=== PATIENT | female | born 1940 | race Caucasian/White ===

== ENCOUNTER 2017-12-08 08:30 | Inpatient (IN) | payer MEDICARE, OTHER ==
[~2017-12-08] VITALS: Ht 165.1 cm; Wt 75.0 kg
[~2017-12-08 08:30] MED LIST: ACET325T55 PO; APIX5TAB3 PO; CHOL2000 PO; DONE10TA6 PO; HYDR-569 PO; IBUP-1984 PO; LEVE500T PO; LORA0.5T PO; LOSA50TA37 PO; MEMA28CA PO; MULT-1085 PO; SERT100T10 PO
[2017-12-08 09:08] LABS: BASOPHILS % (AUTO) 0.1 % (0-1); EOSINOPHILS # (AUTO) 0.2 X10'3 (0-0.9); EOSINOPHILS % (AUTO) 1.2 % (0-6); HEMATOCRIT 43.9 % (35.0-45.0); HEMOGLOBIN 14.7 g/dl (12.0-16.0); LYMPHOCYTES % (AUTO) 6.4 % (21-51); MEAN CORPUSCULAR HGB CONC 33.6 % (33.0-36.5); MEAN CORPUSCULAR VOLUME 86.4 FL (78-98); MEAN PLATELET VOLUME 7.7 FL (7.4-10.4); MONOCYTES % (AUTO) 6.3 % (2-12); NEUTROPHILS # (AUTO) 12.9 X10'3 (1.8-7.7); PLATELET COUNT 249 X10'3 (140-440); RED BLOOD COUNT 5.07 X10'6 (4.20-5.60); RED CELL DISTRIBUTION WIDTH 13.4 % (11.5-14.5)
[2017-12-08 09:18] LABS: PARTIAL THROMBOPLASTIN TIME 25 SECONDS (22-32)
[2017-12-08 09:29] LABS: ALANINE AMINOTRANSFERASE 32 U/L (12-78); ALBUMIN 4.1 G/DL (3.4-5.0); ALBUMIN/GLOBULIN RATIO 1.1 (1.1-1.5); ALKALINE PHOSPHATASE 80 IU/L (46-116); ASPARTATE AMINO TRANSFERASE 21 U/L (10-37); BILIRUBIN,TOTAL 0.7 MG/DL (0.1-1.0); BLOOD UREA NITROGEN 25 MG/DL (7-18); BUN/CREATININE RATIO 19.2 (6.6-38.0); CALCIUM 9.4 MG/DL (8.5-10.1); GLUCOSE 143 MG/DL (70-104); TROPONIN I < 0.04 NG/ML (0.0-0.05); eGFR 40 ML/MIN
[2017-12-08 09:31] LABS: ANION GAP 12 (8-16); CHLORIDE 102 MMOL/L (99-107); POTASSIUM 4.2 MMOL/L (3.5-5.1); SODIUM 136 MMOL/L (135-145)
[2017-12-08] MEDS ORDERED: CefTRIAXone 2gm/D5W 50ml 50 ML IV ONE (09:40)
[2017-12-08] MEDS ORDERED: CefTRIAXone/D5W-Rocephin 1gm 50 ML IV ONE (10:15)
[2017-12-08] MEDS ORDERED: potassium Cl 20 mEq SR tablet PO PRN ×2 (10:15)
[2017-12-08] MEDS ORDERED: acetaminophen 650mg rectal suppository RC PRN (10:15)
[2017-12-08] MEDS ORDERED: magnesium Cl slow-release 64mg tablet PO PRN (10:15)
[2017-12-08] MEDS ORDERED: potassium Cl 40MEQ/NS 500ml 500 ML IV PRN ×2 (10:15)
[2017-12-08] MEDS ORDERED: magnesium 1gm/100ml D5W IVPB 100 ML IV PRN (10:15)
[2017-12-08] MEDS ORDERED: magnesium 4gm in 100ml NS 100 ML IV PRN (10:15)
[2017-12-08] MEDS ORDERED: ondansetron/PF 4mg/2ml inj IV PRN (10:15)
[2017-12-08] MEDS: normal saline 1000ml 1,000 ML IV SCH ×2 (10:52→20:36)
[2017-12-08 11:01] LABS: CLARITY,URINE CLEAR (Clear); COLOR,URINE YELLOW (Yellow); GLUCOSE, URINE NEGATIVE (Neg); KETONES,URINE NEGATIVE (Neg); LEUKOCYTE ESTERASE ,URINE NEGATIVE (Neg); NITRITES, URINE NEGATIVE (Neg); OCCULT BLOOD,URINE MODERATE (Neg); PROTEIN,URINE NEGATIVE (Neg); UA COLLECTION TYPE STRAIGHT CATH; UROBILINOGEN,URINE 0.2 E.U/dL (0.2-1.0)
[2017-12-08 11:09] LABS: BACTERIA,URINE FEW /HPF (Neg); HYALINE CASTS 0-3 /LPF (NEGATIVE); MUCUS STRANDS MODERATE /LPF (Neg); SQUAMOUS EPITHELIAL CELL,UR FEW /LPF (FEW); WBC,URINE 0-4 /HPF (0-4)
[2017-12-08 13:44] VITALS: BP 147/80
[2017-12-08 18:00] VITALS: BP 168/77
[2017-12-08 22:00] VITALS: BP 160/81
[2017-12-09 06:00] VITALS: BP 161/72
[2017-12-09] MEDS: normal saline 1000ml 1,000 ML IV SCH ×2 (06:12→16:12)
[2017-12-09 06:43] LABS: BASOPHILS # (AUTO) 0.1 X10'3 (0-0.2); BASOPHILS % (AUTO) 0.8 % (0-1); EOSINOPHILS # (AUTO) 0.1 X10'3 (0-0.9); EOSINOPHILS % (AUTO) 1.1 % (0-6); HEMATOCRIT 37.9 % (35.0-45.0); HEMOGLOBIN 12.8 g/dl (12.0-16.0); LYMPHOCYTES # (AUTO) 1.4 X10'3 (1.1-4.8); LYMPHOCYTES % (AUTO) 13.9 % (21-51); MEAN CORPUSCULAR HEMOGLOBIN 28.9 PG (27.0-31.0); MEAN CORPUSCULAR HGB CONC 33.7 % (33.0-36.5); MEAN CORPUSCULAR VOLUME 85.6 FL (78-98); MEAN PLATELET VOLUME 8.8 FL (7.4-10.4); MONOCYTES # (AUTO) 0.9 X10'3 (0-0.9); MONOCYTES % (AUTO) 8.9 % (2-12); NEUTROPHILS # (AUTO) 7.4 X10'3 (1.8-7.7); NEUTROPHILS % (AUTO) 75.3 % (42-75); PLATELET COUNT 193 X10'3 (140-440); RED BLOOD COUNT 4.43 X10'6 (4.20-5.60); RED CELL DISTRIBUTION WIDTH 13.1 % (11.5-14.5); WHITE BLOOD COUNT 9.9 X10'3 (4.5-11.0)
[2017-12-09 06:55] LABS: ALBUMIN 3.4 G/DL (3.4-5.0); ANION GAP 11 (8-16); BLOOD UREA NITROGEN 22 MG/DL (7-18); BUN/CREATININE RATIO 20.2 (6.6-38.0); CALCIUM 8.4 MG/DL (8.5-10.1); CHLORIDE 105 MMOL/L (99-107); CREATININE 1.09 MG/DL (0.40-0.90); GLUCOSE 106 MG/DL (70-104); POTASSIUM 3.5 MMOL/L (3.5-5.1); SODIUM 139 MMOL/L (135-145); TOTAL CARBON DIOXIDE 22.6 MMOL/L (24-32); eGFR 49 ML/MIN
[2017-12-09] MEDS: K and/or MAG REPLACEMENT MC SCH (07:20)
[2017-12-09] MEDS ORDERED: HYDR-569 PO (13:55)
[2017-12-09] MEDS ORDERED: APIX5TAB3 PO (13:55)
[2017-12-09] MEDS: losartan 50mg tablet PO SCH (17:20)
[2017-12-09] MEDS: LORazepam 2 mg/ml vial IV PRN (17:20)
[2017-12-09 18:00] VITALS: BP 168/85
[2017-12-09] MEDS: levetiracetam 250mg tablet PO SCH (20:03)
[2017-12-09] MEDS: donepezil 5mg tablet PO SCH (20:04)
[2017-12-09] MEDS: memantine 5mg tablet PO SCH (20:04)
[2017-12-09 22:00] VITALS: BP 145/84
[2017-12-10] MEDS: normal saline 1000ml 1,000 ML IV SCH ×2 (03:05→13:55)
[2017-12-10 06:00] VITALS: BP 168/78
[2017-12-10 06:02] LABS: BASOPHILS % (AUTO) 0.4 % (0-1); EOSINOPHILS # (AUTO) 0.2 X10'3 (0-0.9); EOSINOPHILS % (AUTO) 1.8 % (0-6); HEMATOCRIT 38.4 % (35.0-45.0); HEMOGLOBIN 13.1 g/dl (12.0-16.0); LYMPHOCYTES % (AUTO) 11.1 % (21-51); MEAN CORPUSCULAR HGB CONC 34.1 % (33.0-36.5); MEAN CORPUSCULAR VOLUME 85.2 FL (78-98); MEAN PLATELET VOLUME 8.4 FL (7.4-10.4); MONOCYTES # (AUTO) 0.8 X10'3 (0-0.9); MONOCYTES % (AUTO) 8.6 % (2-12); NEUTROPHILS # (AUTO) 7.3 X10'3 (1.8-7.7); NEUTROPHILS % (AUTO) 78.1 % (42-75); PLATELET COUNT 182 X10'3 (140-440); RED BLOOD COUNT 4.51 X10'6 (4.20-5.60); RED CELL DISTRIBUTION WIDTH 12.8 % (11.5-14.5); WHITE BLOOD COUNT 9.4 X10'3 (4.5-11.0)
[2017-12-10 06:26] LABS: ALBUMIN 3.2 G/DL (3.4-5.0); ANION GAP 13 (8-16); BLOOD UREA NITROGEN 18 MG/DL (7-18); BUN/CREATININE RATIO 16.8 (6.6-38.0); CHLORIDE 104 MMOL/L (99-107); CREATININE 1.07 MG/DL (0.40-0.90); GLUCOSE 105 MG/DL (70-104); SODIUM 138 MMOL/L (135-145); TOTAL CARBON DIOXIDE 20.6 MMOL/L (24-32); eGFR 50 ML/MIN
[2017-12-10 06:28] LABS: POTASSIUM 3.8 MMOL/L (3.5-5.1)
[2017-12-10] MEDS: K and/or MAG REPLACEMENT MC SCH (08:00)
[2017-12-10] MEDS: losartan 50mg tablet PO SCH (08:10)
[2017-12-10] MEDS: levetiracetam 250mg tablet PO SCH ×2 (08:10→19:42)
[2017-12-10] MEDS: sertraline 50mg tablet PO SCH (08:10)
[2017-12-10] MEDS: LORazepam 2 mg/ml vial IV PRN (08:11)
[2017-12-10 10:00] VITALS: BP 159/79
[2017-12-10] MEDS: memantine 5mg tablet PO SCH ×2 (14:14→19:42)
[2017-12-10] MEDS: acetaminophen 325mg tablet PO PRN (17:19)
[2017-12-10] MEDS: LORazepam 0.5 MG tablet PO PRN (17:23)
[2017-12-10 18:00] VITALS: BP 173/96
[2017-12-10] MEDS: donepezil 5mg tablet PO SCH (19:42)
[2017-12-10 22:00] VITALS: BP 157/78
[2017-12-11 05:55] LABS: ALBUMIN 3.2 G/DL (3.4-5.0); ANION GAP 9 (8-16); BLOOD UREA NITROGEN 18 MG/DL (7-18); BUN/CREATININE RATIO 19.6 (6.6-38.0); CALCIUM 8.7 MG/DL (8.5-10.1); CHLORIDE 104 MMOL/L (99-107); CREATININE 0.92 MG/DL (0.40-0.90); GLUCOSE 115 MG/DL (70-104); MAGNESIUM 2.1 MG/DL (1.5-2.4); POTASSIUM 3.8 MMOL/L (3.5-5.1); SODIUM 137 MMOL/L (135-145); TOTAL CARBON DIOXIDE 23.6 MMOL/L (24-32); eGFR 59 ML/MIN
[2017-12-11 06:00] VITALS: BP 130/69
[2017-12-11] MEDS: K and/or MAG REPLACEMENT MC SCH (06:57)
[2017-12-11] MEDS ORDERED: cefTRIAXone 1g/NS 100ml IVPB 50 ML IV SCH (08:00)
[2017-12-11] MEDS: losartan 50mg tablet PO SCH (08:22)
[2017-12-11] MEDS: sertraline 50mg tablet PO SCH (08:22)
[2017-12-11] MEDS: memantine 5mg tablet PO SCH ×2 (08:22→19:28)
[2017-12-11] MEDS: levetiracetam 250mg tablet PO SCH ×2 (08:22→19:28)
[2017-12-11] MEDS ORDERED: calcitonin, salmon,Synth Nasal spray 200 units/actuation NS SCH (09:00)
[2017-12-11 09:08] LABS: BASOPHILS % (AUTO) 0.4 % (0-1); EOSINOPHILS # (AUTO) 0.2 X10'3 (0-0.9); EOSINOPHILS % (AUTO) 2.4 % (0-6); HEMATOCRIT 37.5 % (35.0-45.0); HEMOGLOBIN 12.6 g/dl (12.0-16.0); LYMPHOCYTES # (AUTO) 1.1 X10'3 (1.1-4.8); LYMPHOCYTES % (AUTO) 13.7 % (21-51); MEAN CORPUSCULAR HEMOGLOBIN 28.7 PG (27.0-31.0); MEAN CORPUSCULAR HGB CONC 33.5 % (33.0-36.5); MEAN CORPUSCULAR VOLUME 85.8 FL (78-98); MEAN PLATELET VOLUME 7.8 FL (7.4-10.4); MONOCYTES # (AUTO) 0.7 X10'3 (0-0.9); MONOCYTES % (AUTO) 8.2 % (2-12); NEUTROPHILS # (AUTO) 6.2 X10'3 (1.8-7.7); NEUTROPHILS % (AUTO) 75.3 % (42-75); PLATELET COUNT 205 X10'3 (140-440); RED BLOOD COUNT 4.37 X10'6 (4.20-5.60); RED CELL DISTRIBUTION WIDTH 12.8 % (11.5-14.5); WHITE BLOOD COUNT 8.2 X10'3 (4.5-11.0)
[2017-12-11 10:00] VITALS: BP 142/75
[2017-12-11] MEDS: LORazepam 0.5 MG tablet PO PRN ×2 (12:53→19:28)
[2017-12-11] MEDS: acetaminophen 325mg tablet PO PRN ×2 (12:58→22:05)
[2017-12-11 18:00] VITALS: BP 135/72
[2017-12-11] MEDS: donepezil 5mg tablet PO SCH (19:28)
[2017-12-11 22:00] VITALS: BP 135/68
[2017-12-12 06:00] VITALS: BP 144/78
[2017-12-12 06:26] LABS: ALBUMIN 3.3 G/DL (3.4-5.0); ANION GAP 11 (8-16); BLOOD UREA NITROGEN 18 MG/DL (7-18); BUN/CREATININE RATIO 17.1 (6.6-38.0); CHLORIDE 104 MMOL/L (99-107); CREATININE 1.05 MG/DL (0.40-0.90); GLUCOSE 107 MG/DL (70-104); POTASSIUM 3.8 MMOL/L (3.5-5.1); SODIUM 138 MMOL/L (135-145); TOTAL CARBON DIOXIDE 23.1 MMOL/L (24-32); eGFR 51 ML/MIN
[2017-12-12 06:40] LABS: BASOPHILS # (AUTO) 0.1 X10'3 (0-0.2); BASOPHILS % (AUTO) 0.6 % (0-1); EOSINOPHILS # (AUTO) 0.3 X10'3 (0-0.9); EOSINOPHILS % (AUTO) 2.8 % (0-6); HEMATOCRIT 39.4 % (35.0-45.0); HEMOGLOBIN 13.3 g/dl (12.0-16.0); LYMPHOCYTES # (AUTO) 1.1 X10'3 (1.1-4.8); LYMPHOCYTES % (AUTO) 9.8 % (21-51); MEAN CORPUSCULAR HGB CONC 33.6 % (33.0-36.5); MEAN CORPUSCULAR VOLUME 86.2 FL (78-98); MEAN PLATELET VOLUME 8.5 FL (7.4-10.4); MONOCYTES # (AUTO) 0.8 X10'3 (0-0.9); MONOCYTES % (AUTO) 6.6 % (2-12); NEUTROPHILS # (AUTO) 9.3 X10'3 (1.8-7.7); NEUTROPHILS % (AUTO) 80.2 % (42-75); PLATELET COUNT 215 X10'3 (140-440); RED BLOOD COUNT 4.58 X10'6 (4.20-5.60); RED CELL DISTRIBUTION WIDTH 12.9 % (11.5-14.5); WHITE BLOOD COUNT 11.6 X10'3 (4.5-11.0)
[2017-12-12] MEDS: LORazepam 0.5 MG tablet PO PRN (07:19)
[2017-12-12] MEDS: memantine 5mg tablet PO SCH (07:24)
[2017-12-12] MEDS: sertraline 50mg tablet PO SCH (07:24)
[2017-12-12] MEDS: losartan 50mg tablet PO SCH (07:24)
[2017-12-12] MEDS: levetiracetam 250mg tablet PO SCH (07:24)
[2017-12-12] MEDS: acetaminophen 325mg tablet PO PRN (07:25)
[2017-12-12] MEDS ORDERED: HYDROcodone/acetaminophen 5mg/325mg tablet PO PRN (07:40)
[2017-12-12] MEDS ORDERED: morphine 2 MG/ML inj. syringe IV PRN (07:40)
[2017-12-12] MEDS: K and/or MAG REPLACEMENT MC SCH (08:00)
[2017-12-12 10:00] VITALS: BP 142/81
== END 2017-12-12 14:50 | DRG 917 ==
LOC: ER 08:31 → ED HOLD 10:12 → ORTHO 4S 13:20
PROVIDERS: ADMIT Internal Medicine; ATTEND Family Medicine
DX: T40.2X1A Poisoning by other opioids, accidental (unintentional), initial encounter (principal); G92 Toxic encephalopathy; N17.9 Acute kidney failure, unspecified; M48.56XA Collapsed vertebra, not elsewhere classified, lumbar region, initial encounter for fracture; G40.909 Epilepsy, unspecified, not intractable, without status epilepticus; G30.9 Alzheimer's disease, unspecified; T48.1X1A Poisoning by skeletal muscle relaxants [neuromuscular blocking agents], accidental (unintentional), initial encounter; F02.80 Dementia in other diseases classified elsewhere, unspecified severity, without behavioral disturbance, psychotic disturbance, mood disturbance, and anxiety; M85.80 Other specified disorders of bone density and structure, unspecified site; I10 Essential (primary) hypertension; R25.1 Tremor, unspecified; F41.9 Anxiety disorder, unspecified; M54.5 Low back pain; Z66 Do not resuscitate; Z90.710 Acquired absence of both cervix and uterus; Z88.2 Allergy status to sulfonamides; Z88.8 Allergy status to other drugs, medicaments and biological substances; Z79.899 Other long term (current) drug therapy; Z79.01 Long term (current) use of anticoagulants; Z86.718 Personal history of other venous thrombosis and embolism; Y92.89 Other specified places as the place of occurrence of the external cause
CPT/HCPCS: 36415; 70450; 71045; 72148; 80048; 80053; 81001; 82306; 82948; 83605; 83735; 84145; 84484; 85025; 85610; 85730; 87040; 87070; 92616; 93005; 97116; 97162; 97530; 99285; A4353; A6213; J0696; J2060; J7030

== ENCOUNTER 2018-03-24 10:42 | Inpatient (IN) | payer MEDICARE, OTHER ==
[~2018-03-24] VITALS: Ht 167.6 cm; Wt 68.1 kg
[~2018-03-24 10:42] MED LIST changes: -DONE10TA6 PO; +DONE10TA7 PO; +HYDR-4383 PO; -HYDR-569 PO; +LOSA50TA21 PO; -LOSA50TA37 PO
[2018-03-24] MEDS ORDERED: normal saline 1000ML IV soln IV ONE (10:50)
[2018-03-24 11:14] LABS: CLARITY,URINE CLOUDY (Clear); COLOR,URINE AMBER (Yellow); GLUCOSE, URINE NEGATIVE (Neg); KETONES,URINE TRACE mg/dl (Neg); LEUKOCYTE ESTERASE ,URINE NEGATIVE (Neg); NITRITES, URINE NEGATIVE (Neg); OCCULT BLOOD,URINE TRACE-INTACT (Neg); PH,URINE 5.5 (4.8-8.0); PROTEIN,URINE 30 mg/dl (Neg); UROBILINOGEN,URINE 0.2 E.U/dL (0.2-1.0)
[2018-03-24 11:15] LABS: UA COLLECTION TYPE FOLEY CATH
[2018-03-24 11:24] LABS: BASOPHILS % (AUTO) 0.2 % (0-1); EOSINOPHILS # (AUTO) 0.3 X10'3 (0-0.9); EOSINOPHILS % (AUTO) 1.3 % (0-6); HEMATOCRIT 53.7 % (35.0-45.0); HEMOGLOBIN 17.1 g/dl (12.0-16.0); LYMPHOCYTES # (AUTO) 0.8 X10'3 (1.1-4.8); LYMPHOCYTES % (AUTO) 3.2 % (21-51); MEAN CORPUSCULAR HEMOGLOBIN 27.6 PG (27.0-31.0); MEAN CORPUSCULAR HGB CONC 31.9 % (33.0-36.5); MEAN CORPUSCULAR VOLUME 86.6 FL (78-98); MEAN PLATELET VOLUME 9.1 FL (7.4-10.4); MONOCYTES # (AUTO) 0.3 X10'3 (0-0.9); MONOCYTES % (AUTO) 1.4 % (2-12); NEUTROPHILS # (AUTO) 22.4 X10'3 (1.8-7.7); NEUTROPHILS % (AUTO) 93.9 % (42-75); PLATELET COUNT 273 X10'3 (140-440); RED CELL DISTRIBUTION WIDTH 13.9 % (11.5-14.5); WHITE BLOOD COUNT 23.9 X10'3 (4.5-11.0)
[2018-03-24 11:27] LABS: WBC,URINE 0-4 /HPF (0-4)
[2018-03-24 11:28] LABS: BACTERIA,URINE NONE SEEN /HPF (Neg); SQUAMOUS EPITHELIAL CELL,UR MANY /LPF (FEW)
[2018-03-24 11:37] LABS: ALANINE AMINOTRANSFERASE 513 U/L (12-78); ALBUMIN/GLOBULIN RATIO 1.1 (1.1-1.5); ALKALINE PHOSPHATASE 163 IU/L (46-116); ANION GAP 21 (8-16); ASPARTATE AMINO TRANSFERASE 187 U/L (10-37); BILIRUBIN,TOTAL 0.9 MG/DL (0.1-1.0); BLOOD UREA NITROGEN 34 MG/DL (7-18); BUN/CREATININE RATIO 15.5 (6.6-38.0); CALCIUM 9.5 MG/DL (8.5-10.1); CHLORIDE 103 MMOL/L (99-107); CREATININE 2.19 MG/DL (0.40-0.90); GLUCOSE 174 MG/DL (70-104); MAGNESIUM 1.9 MG/DL (1.5-2.4); POTASSIUM 3.5 MMOL/L (3.5-5.1); SODIUM 142 MMOL/L (135-145); TOTAL CARBON DIOXIDE 17.9 MMOL/L (24-32); TOTAL PROTEIN 7.6 G/DL (6.4-8.2); eGFR 22 ML/MIN
[2018-03-24] MEDS ORDERED: CefTRIAXone 2gm/D5W 50ml 50 ML IV ONE (11:40)
[2018-03-24] MEDS: oseltamivir phos 75mg capsule PO ONE ×2 (11:40→11:49)
[2018-03-24] MEDS ORDERED: azithromycin/NS 500mg/250ml 250 ML IV ONE (11:40)
[2018-03-24] MEDS ORDERED: ondansetron/PF 4mg/2ml inj IV ONE (12:15)
[2018-03-24] MEDS ORDERED: DULOXETINE (12:51)
[2018-03-24] MEDS ORDERED: mag hydrox/Alum hydrox/simeth 30ml oral suspension PO PRN (14:35)
[2018-03-24] MEDS ORDERED: metoclopramide 5 mg/ml inj IV PRN (14:35)
[2018-03-24] MEDS ORDERED: ondansetron/PF 4mg/2ml inj IV PRN (14:35)
[2018-03-24] MEDS ORDERED: potassium Cl 40MEQ/NS 500ml 500 ML IV PRN ×2 (14:35)
[2018-03-24] MEDS ORDERED: HYDROcodone/acetaminophen 10/325mg tab PO PRN (14:35)
[2018-03-24] MEDS ORDERED: acetaminophen 325mg tablet PO PRN ×2 (14:35)
[2018-03-24] MEDS ORDERED: potassium Cl 20 mEq SR tablet PO PRN ×2 (14:35)
[2018-03-24] MEDS ORDERED: magnesium Cl slow-release 64mg tablet PO PRN (14:35)
[2018-03-24] MEDS ORDERED: magnesium hydroxide 30ml (MOM) UD suspension PO PRN (14:35)
[2018-03-24] MEDS ORDERED: magnesium 4gm in 100ml NS 100 ML IV PRN (14:35)
[2018-03-24] MEDS: normal saline 1000ml 1,000 ML IV SCH (15:02)
[2018-03-24] MEDS ORDERED: DOCU-267 PO (15:11)
[2018-03-24] MEDS ORDERED: CALC-157 PO (15:16)
[2018-03-24] MEDS ORDERED: SENN-161 PO (15:18)
[2018-03-24] MEDS ORDERED: ONDA4TAB11 PO (15:19)
[2018-03-24 17:00] VITALS: BP 155/85
[2018-03-24 20:00] VITALS: BP 155/93
[2018-03-24] MEDS: levetiracetam 250mg tablet PO SCH (20:27)
[2018-03-24] MEDS: memantine 5mg tablet PO SCH (20:27)
[2018-03-24] MEDS: donepezil 5mg tablet PO SCH (20:27)
[2018-03-25 05:00] VITALS: BP 144/83
[2018-03-25] MEDS: normal saline 1000ml 1,000 ML IV SCH (05:23)
[2018-03-25] MEDS: HYDROcodone/acetaminophen 5mg/325mg tablet PO PRN ×2 (05:25→17:07)
[2018-03-25 06:12] LABS: BASOPHILS # (AUTO) 0.1 X10'3 (0-0.2); BASOPHILS % (AUTO) 0.2 % (0-1); EOSINOPHILS % (AUTO) 0 % (0-6); HEMATOCRIT 45.9 % (35.0-45.0); LYMPHOCYTES # (AUTO) 0.8 X10'3 (1.1-4.8); LYMPHOCYTES % (AUTO) 3.1 % (21-51); MEAN CORPUSCULAR HEMOGLOBIN 28.1 PG (27.0-31.0); MEAN CORPUSCULAR HGB CONC 32.7 % (33.0-36.5); MEAN CORPUSCULAR VOLUME 85.8 FL (78-98); MEAN PLATELET VOLUME 9.3 FL (7.4-10.4); MONOCYTES # (AUTO) 0.7 X10'3 (0-0.9); MONOCYTES % (AUTO) 2.9 % (2-12); NEUTROPHILS # (AUTO) 24.2 X10'3 (1.8-7.7); NEUTROPHILS % (AUTO) 93.8 % (42-75); PLATELET COUNT 209 X10'3 (140-440); RED BLOOD COUNT 5.35 X10'6 (4.20-5.60); RED CELL DISTRIBUTION WIDTH 14.3 % (11.5-14.5)
[2018-03-25 06:15] LABS: WHITE BLOOD COUNT 25.8 X10'3 (4.5-11.0)
[2018-03-25 06:37] LABS: ALANINE AMINOTRANSFERASE 213 U/L (12-78); ALBUMIN 2.7 G/DL (3.4-5.0); ALBUMIN/GLOBULIN RATIO 0.9 (1.1-1.5); ALKALINE PHOSPHATASE 97 IU/L (46-116); ANION GAP 14 (8-16); ASPARTATE AMINO TRANSFERASE 56 U/L (10-37); BILIRUBIN,TOTAL 0.5 MG/DL (0.1-1.0); BLOOD UREA NITROGEN 24 MG/DL (7-18); BUN/CREATININE RATIO 22.4 (6.6-38.0); CALCIUM 7.2 MG/DL (8.5-10.1); CHLORIDE 112 MMOL/L (99-107); CREATININE 1.07 MG/DL (0.40-0.90); GLUCOSE 143 MG/DL (70-104); MAGNESIUM 1.6 MG/DL (1.5-2.4); PHOSPHORUS 1.8 MG/DL (2.3-4.5); POTASSIUM 3.2 MMOL/L (3.5-5.1); SODIUM 146 MMOL/L (135-145); TOTAL CARBON DIOXIDE 19.7 MMOL/L (24-32); TOTAL PROTEIN 5.6 G/DL (6.4-8.2); eGFR 50 ML/MIN
[2018-03-25 06:46] LABS: PLATELET ESTIMATE NORMAL; TOTAL CELLS COUNTED 100
[2018-03-25] MEDS ORDERED: CefTRIAXone/D5W-Rocephin 1gm 50 ML IV SCH (08:00)
[2018-03-25] MEDS ORDERED: losartan 50mg tablet PO SCH (08:00)
[2018-03-25] MEDS ORDERED: azithromycin/NS 500mg/250ml 250 ML IV SCH (08:00)
[2018-03-25] MEDS: K and/or MAG REPLACEMENT MC SCH (08:04)
[2018-03-25] MEDS: levetiracetam 250mg tablet PO SCH ×2 (09:16→19:58)
[2018-03-25] MEDS: docusate sod 100mg capsule PO SCH (09:16)
[2018-03-25] MEDS: sertraline 50mg tablet PO SCH (09:17)
[2018-03-25] MEDS: duloxetine 30mg CAPSULE.DR PO SCH (09:17)
[2018-03-25] MEDS: memantine 5mg tablet PO SCH ×2 (09:18→19:58)
[2018-03-25 10:00] VITALS: BP 117/73
[2018-03-25] MEDS: LORazepam 0.5 MG tablet PO PRN ×2 (12:00→18:41)
[2018-03-25] MEDS ORDERED: sodium chloride 0.45% 1,000 ML IV SCH (12:10)
[2018-03-25] MEDS ORDERED: potassium phosphate inj 30 MMOL in normal saline 500ml IV soln 490 ML IV ONE (14:10)
[2018-03-25] MEDS: levoFLOXACIN-Levaquin 500mg/D5 100 ML IV SCH (14:55)
[2018-03-25] MEDS: pantoprazole 40mg Tablet.DR PO SCH (14:55)
[2018-03-25] MEDS: enoxaparin 40mg/0.4ml syringe SUBCUT SCH (14:56)
[2018-03-25] MEDS: metroNIDAZOLE-Flagyl 500mg/NS 100 ML IV SCH (16:06)
[2018-03-25] MEDS ORDERED: Potassium Cl inj 20 MEQ in sodium chloride 0.45% 990 ML IV SCH (16:14)
[2018-03-25] MEDS: potassium cl 20mEq in 1/2 NS 1,000 ML IV SCH (17:03)
[2018-03-25 18:11] VITALS: BP 118/67
[2018-03-25] MEDS: donepezil 5mg tablet PO SCH (19:58)
[2018-03-25] MEDS: lactobacillus rhamnosus 10,000 MMU CELLS/CAPSULE PO SCH (19:58)
[2018-03-25 21:53] VITALS: BP 133/68
[2018-03-26] MEDS: HYDROcodone/acetaminophen 5mg/325mg tablet PO PRN (00:10)
[2018-03-26] MEDS: metroNIDAZOLE-Flagyl 500mg/NS 100 ML IV SCH ×3 (00:58→16:06)
[2018-03-26] MEDS: LORazepam 0.5 MG tablet PO PRN (00:59)
[2018-03-26] MEDS: potassium cl 20mEq in 1/2 NS 1,000 ML IV SCH (04:55)
[2018-03-26 06:00] VITALS: BP 174/88
[2018-03-26 06:04] LABS: BASOPHILS # (AUTO) 0.1 X10'3 (0-0.2); BASOPHILS % (AUTO) 0.3 % (0-1); EOSINOPHILS % (AUTO) 0 % (0-6); HEMATOCRIT 40.8 % (35.0-45.0); HEMOGLOBIN 13.5 g/dl (12.0-16.0); LYMPHOCYTES # (AUTO) 0.8 X10'3 (1.1-4.8); LYMPHOCYTES % (AUTO) 3.8 % (21-51); MEAN CORPUSCULAR HEMOGLOBIN 28.4 PG (27.0-31.0); MEAN CORPUSCULAR HGB CONC 33.1 % (33.0-36.5); MEAN CORPUSCULAR VOLUME 85.7 FL (78-98); MONOCYTES # (AUTO) 0.6 X10'3 (0-0.9); MONOCYTES % (AUTO) 3.2 % (2-12); NEUTROPHILS # (AUTO) 18.6 X10'3 (1.8-7.7); NEUTROPHILS % (AUTO) 92.7 % (42-75); PLATELET COUNT 184 X10'3 (140-440); RED BLOOD COUNT 4.76 X10'6 (4.20-5.60); RED CELL DISTRIBUTION WIDTH 14.4 % (11.5-14.5); WHITE BLOOD COUNT 20.1 X10'3 (4.5-11.0)
[2018-03-26 06:35] LABS: ALANINE AMINOTRANSFERASE 115 U/L (12-78); ALBUMIN 2.2 G/DL (3.4-5.0); ALBUMIN/GLOBULIN RATIO 0.7 (1.1-1.5); ALKALINE PHOSPHATASE 86 IU/L (46-116); ANION GAP 13 (8-16); ASPARTATE AMINO TRANSFERASE 25 U/L (10-37); BILIRUBIN,TOTAL 0.6 MG/DL (0.1-1.0); BLOOD UREA NITROGEN 19 MG/DL (7-18); BUN/CREATININE RATIO 18.8 (6.6-38.0); CALCIUM 7.1 MG/DL (8.5-10.1); CHLORIDE 114 MMOL/L (99-107); CREATININE 1.01 MG/DL (0.40-0.90); GLUCOSE 131 MG/DL (70-104); MAGNESIUM 1.6 MG/DL (1.5-2.4); PHOSPHORUS 2.9 MG/DL (2.3-4.5); POTASSIUM 3.6 MMOL/L (3.5-5.1); SODIUM 146 MMOL/L (135-145); TOTAL CARBON DIOXIDE 18.9 MMOL/L (24-32); TOTAL PROTEIN 5.5 G/DL (6.4-8.2); eGFR 53 ML/MIN
[2018-03-26] MEDS: pantoprazole 40mg Tablet.DR PO SCH ×2 (07:30→08:24)
[2018-03-26] MEDS: lactobacillus rhamnosus 10,000 MMU CELLS/CAPSULE PO SCH ×3 (08:00→20:02)
[2018-03-26] MEDS: K and/or MAG REPLACEMENT MC SCH (08:00)
[2018-03-26] MEDS: docusate sod 100mg capsule PO SCH ×2 (08:00→08:25)
[2018-03-26] MEDS: memantine 5mg tablet PO SCH ×3 (08:00→20:01)
[2018-03-26] MEDS: duloxetine 30mg CAPSULE.DR PO SCH ×2 (08:00→08:20)
[2018-03-26] MEDS: sertraline 50mg tablet PO SCH ×2 (08:20→14:37)
[2018-03-26] MEDS: levoFLOXACIN-Levaquin 500mg/D5 100 ML IV SCH (08:24)
[2018-03-26] MEDS: enoxaparin 40mg/0.4ml syringe SUBCUT SCH (08:27)
[2018-03-26] MEDS: levetiracetam 250mg tablet PO SCH ×3 (08:27→20:02)
[2018-03-26] MEDS ORDERED: hydrALAZINE 20mg/ml inj. IV ONE (08:40)
[2018-03-26 10:00] VITALS: BP 152/77
[2018-03-26] MEDS ORDERED: HYDROmorphone 1 mg/ml syringe IV PRN (13:15)
[2018-03-26] MEDS ORDERED: HYDROmorphone inj. 0.5 MG/0.5 ML DISP.SYRIN IV PRN (13:15)
[2018-03-26] MEDS ORDERED: sodium bicarbonate inj. 44.6 MEQ, Potassium Cl inj 20 MEQ in sodium chloride 0.45% 990.... IV SCH (13:25)
[2018-03-26] MEDS ORDERED: hydrALAZINE 20mg/ml inj. IV PRN (13:30)
[2018-03-26] MEDS ORDERED: HYDROmorphone 1 mg/ml syringe ONE (13:30)
[2018-03-26] MEDS: HYDROmorphone 1 mg/ml syringe IV PRN ×2 (13:40→20:08)
[2018-03-26] MEDS: pantoprazole 40 MG vial IV SCH ×2 (15:00→20:08)
[2018-03-26] MEDS: SODIUM BICARBONATE IV SCH (15:02)
[2018-03-26] MEDS: SODIUM CHLORIDE 0.45% IV SCH (15:02)
[2018-03-26] MEDS: POTASSIUM CL IV SCH (15:02)
[2018-03-26 16:03] VITALS: BP 126/79
[2018-03-26 18:00] VITALS: BP 141/76
[2018-03-26] MEDS: donepezil 5mg tablet PO SCH (20:01)
[2018-03-26 22:16] VITALS: BP 128/45
[2018-03-27] MEDS: metroNIDAZOLE-Flagyl 500mg/NS 100 ML IV SCH ×4 (00:13→23:58)
[2018-03-27] MEDS: HYDROmorphone 1 mg/ml syringe IV PRN ×4 (01:33→22:33)
[2018-03-27] MEDS: SODIUM BICARBONATE IV SCH (03:21)
[2018-03-27] MEDS: LORazepam 0.5 MG tablet PO PRN (03:21)
[2018-03-27] MEDS: SODIUM CHLORIDE 0.45% IV SCH (03:21)
[2018-03-27] MEDS: POTASSIUM CL IV SCH (03:21)
[2018-03-27 06:00] VITALS: BP 171/91
[2018-03-27 06:09] LABS: BASOPHILS % (AUTO) 0.2 % (0-1); EOSINOPHILS % (AUTO) 0.1 % (0-6); HEMOGLOBIN 12.4 g/dl (12.0-16.0); LYMPHOCYTES # (AUTO) 0.7 X10'3 (1.1-4.8); LYMPHOCYTES % (AUTO) 4.9 % (21-51); MEAN CORPUSCULAR HEMOGLOBIN 27.9 PG (27.0-31.0); MEAN CORPUSCULAR HGB CONC 32.5 % (33.0-36.5); MEAN CORPUSCULAR VOLUME 85.9 FL (78-98); MEAN PLATELET VOLUME 9.1 FL (7.4-10.4); MONOCYTES # (AUTO) 0.6 X10'3 (0-0.9); MONOCYTES % (AUTO) 3.9 % (2-12); NEUTROPHILS # (AUTO) 13.7 X10'3 (1.8-7.7); NEUTROPHILS % (AUTO) 90.9 % (42-75); PLATELET COUNT 175 X10'3 (140-440); RED BLOOD COUNT 4.42 X10'6 (4.20-5.60); RED CELL DISTRIBUTION WIDTH 14.6 % (11.5-14.5)
[2018-03-27 06:26] LABS: ALANINE AMINOTRANSFERASE 71 U/L (12-78); ALBUMIN/GLOBULIN RATIO 0.6 (1.1-1.5); ALKALINE PHOSPHATASE 78 IU/L (46-116); ANION GAP 12 (8-16); ASPARTATE AMINO TRANSFERASE 20 U/L (10-37); BILIRUBIN,TOTAL 0.7 MG/DL (0.1-1.0); BLOOD UREA NITROGEN 18 MG/DL (7-18); BUN/CREATININE RATIO 17.6 (6.6-38.0); CHLORIDE 115 MMOL/L (99-107); CREATININE 1.02 MG/DL (0.40-0.90); GLUCOSE 121 MG/DL (70-104); LIPASE 225 U/L (73-393); MAGNESIUM 1.7 MG/DL (1.5-2.4); PHOSPHORUS 1.8 MG/DL (2.3-4.5); POTASSIUM 3.5 MMOL/L (3.5-5.1); SODIUM 148 MMOL/L (135-145); TOTAL PROTEIN 5.5 G/DL (6.4-8.2); eGFR 53 ML/MIN
[2018-03-27] MEDS: docusate sod 100mg capsule PO SCH (08:00)
[2018-03-27] MEDS: K and/or MAG REPLACEMENT MC SCH (08:22)
[2018-03-27] MEDS: lactobacillus rhamnosus 10,000 MMU CELLS/CAPSULE PO SCH ×2 (08:25→19:53)
[2018-03-27] MEDS: memantine 5mg tablet PO SCH ×2 (08:26→19:54)
[2018-03-27] MEDS: levetiracetam 250mg tablet PO SCH (08:26)
[2018-03-27] MEDS: sertraline 50mg tablet PO SCH (08:27)
[2018-03-27] MEDS: enoxaparin 40mg/0.4ml syringe SUBCUT SCH (08:29)
[2018-03-27 10:00] VITALS: BP 161/81
[2018-03-27] MEDS ORDERED: potassium phosphate inj 15 MMOL in normal saline 250ml IV soln 245 ML IV ONE (10:00)
[2018-03-27] MEDS: pantoprazole 40 MG vial IV SCH ×2 (10:46→19:39)
[2018-03-27] MEDS: levoFLOXACIN-Levaquin 500mg/D5 100 ML IV SCH (10:48)
[2018-03-27 13:27] VITALS: BP 140/76
[2018-03-27] MEDS: Potassium Cl inj 20 MEQ in dextrose 5%-water 990 ML IV SCH (16:07)
[2018-03-27 17:25] VITALS: BP 148/75
[2018-03-27 18:00] VITALS: BP 145/71
[2018-03-27] MEDS: acetaminophen 650mg rectal suppository RC PRN (19:28)
[2018-03-27] MEDS: LevETIRAcetam 1,000MG in NORMAL SALINE 100ml IV.SOLN IV SCH (19:45)
[2018-03-27] MEDS: donepezil 5mg tablet PO SCH (20:35)
[2018-03-27 22:00] VITALS: BP 153/71
[2018-03-28 02:14] VITALS: BP 161/80
[2018-03-28] MEDS: HYDROmorphone 1 mg/ml syringe IV PRN ×3 (02:34→11:09)
[2018-03-28] MEDS: Potassium Cl inj 20 MEQ in dextrose 5%-water 990 ML IV SCH (05:42)
[2018-03-28 06:07] LABS: BASOPHILS % (AUTO) 0.1 % (0-1); EOSINOPHILS % (AUTO) 0.1 % (0-6); HEMOGLOBIN 11.8 g/dl (12.0-16.0); LYMPHOCYTES # (AUTO) 0.8 X10'3 (1.1-4.8); LYMPHOCYTES % (AUTO) 6.5 % (21-51); MEAN CORPUSCULAR HEMOGLOBIN 28.2 PG (27.0-31.0); MEAN CORPUSCULAR HGB CONC 32.7 % (33.0-36.5); MEAN CORPUSCULAR VOLUME 86.4 FL (78-98); MEAN PLATELET VOLUME 9.1 FL (7.4-10.4); MONOCYTES # (AUTO) 0.7 X10'3 (0-0.9); NEUTROPHILS # (AUTO) 10.5 X10'3 (1.8-7.7); NEUTROPHILS % (AUTO) 87.3 % (42-75); PLATELET COUNT 156 X10'3 (140-440); RED BLOOD COUNT 4.17 X10'6 (4.20-5.60); RED CELL DISTRIBUTION WIDTH 14.6 % (11.5-14.5)
[2018-03-28 06:30] VITALS: BP 162/86
[2018-03-28] MEDS: levoFLOXACIN-Levaquin 500mg/D5 100 ML IV SCH (06:50)
[2018-03-28] MEDS ORDERED: piperacillin/tazo 3.375gm/50ml 50 ML IV SCH (08:00)
[2018-03-28] MEDS: enoxaparin 40mg/0.4ml syringe SUBCUT SCH (08:00)
[2018-03-28] MEDS: pantoprazole 40 MG vial IV SCH (08:03)
[2018-03-28] MEDS: LevETIRAcetam 1,000MG in NORMAL SALINE 100ml IV.SOLN IV SCH (08:03)
[2018-03-28] MEDS: acetaminophen 650mg rectal suppository RC PRN (09:07)
[2018-03-28 09:12] LABS: CHLORIDE 114 MMOL/L (99-107); GLUCOSE 167 MG/DL (70-104); POTASSIUM 3.6 MMOL/L (3.5-5.1); SODIUM 148 MMOL/L (135-145)
[2018-03-28 09:13] LABS: ALANINE AMINOTRANSFERASE 48 U/L (12-78); ALBUMIN 1.8 G/DL (3.4-5.0); ALBUMIN/GLOBULIN RATIO 0.5 (1.1-1.5); ALKALINE PHOSPHATASE 71 IU/L (46-116); ANION GAP 12 (8-16); ASPARTATE AMINO TRANSFERASE 16 U/L (10-37); BILIRUBIN,TOTAL 0.5 MG/DL (0.1-1.0); BLOOD UREA NITROGEN 17 MG/DL (7-18); BUN/CREATININE RATIO 17.7 (6.6-38.0); CALCIUM 8.2 MG/DL (8.5-10.1); CREATININE 0.96 MG/DL (0.40-0.90); MAGNESIUM 1.9 MG/DL (1.5-2.4); PHOSPHORUS 1.8 MG/DL (2.3-4.5); TOTAL CARBON DIOXIDE 21.8 MMOL/L (24-32); TOTAL PROTEIN 5.3 G/DL (6.4-8.2); eGFR 57 ML/MIN
[2018-03-28 10:00] VITALS: BP 176/75
[2018-03-28] MEDS ORDERED: LORazepam 2 mg/ml vial IV PRN (11:35)
[2018-03-28] MEDS ORDERED: morphine 10mg/0.5ml (conc. morphine) oral syringe PO PRN (11:35)
[2018-03-28] MEDS ORDERED: HYDROmorphone 1 mg/ml syringe IV PRN (11:35)
== END 2018-03-28 15:25 | disposition hospice, home (50) | DRG 871 ==
LOC: ER 10:42 → ED HOLD 14:32 → ORTHO 4S 16:45
PROVIDERS: ADMIT Family Medicine; ATTEND Internal Medicine
PROC: 0D9670Z Drainage of Stomach with Drainage Device, Via Natural or Artificial Opening (ICD-10-PCS; principal; 2018-03-26)
DX: A41.9 Sepsis, unspecified organism (principal); G92 Toxic encephalopathy; J69.0 Pneumonitis due to inhalation of food and vomit; K85.90 Acute pancreatitis without necrosis or infection, unspecified; N17.9 Acute kidney failure, unspecified; K56.7 Ileus, unspecified; E78.5 Hyperlipidemia, unspecified; E83.39 Other disorders of phosphorus metabolism; E86.0 Dehydration; F02.80 Dementia in other diseases classified elsewhere, unspecified severity, without behavioral disturbance, psychotic disturbance, mood disturbance, and anxiety; G30.9 Alzheimer's disease, unspecified; R09.02 Hypoxemia; G40.909 Epilepsy, unspecified, not intractable, without status epilepticus; I10 Essential (primary) hypertension; K52.9 Noninfective gastroenteritis and colitis, unspecified; I48.91 Unspecified atrial fibrillation; E87.6 Hypokalemia; F41.9 Anxiety disorder, unspecified; R74.0 Nonspecific elevation of levels of transaminase and lactic acid dehydrogenase [LDH]; R94.5 Abnormal results of liver function studies; Z51.5 Encounter for palliative care; Z66 Do not resuscitate; Z90.710 Acquired absence of both cervix and uterus; Z88.2 Allergy status to sulfonamides; Z88.8 Allergy status to other drugs, medicaments and biological substances; Z79.899 Other long term (current) drug therapy; Z86.718 Personal history of other venous thrombosis and embolism
CPT/HCPCS: 36415; 71045; 74018; 74176; 80053; 81001; 82948; 83605; 83690; 83735; 84100; 84145; 85025; 87040; 87070; 87502; 87503; 92616; 93005; 96361; 96365; 96368; 96375; 97162; 97530; 99291; 99292; C9113; G0378; J0360; J0456; J0696; J1170; J1650; J1953; J1956; J2060; J2405; J2543; J3480; J3490; J7030; J7070